=== PATIENT | female | born 1990 | race Caucasian/White ===

== ENCOUNTER 2016-09-03 18:25 | Emergency (ER) | payer MEDICAID ==
[~2016-09-03] VITALS: Ht 154.9 cm; Wt 99.3 kg
[2016-09-03 18:34] VITALS: BP_SYST 120
[2016-09-03] MEDS ORDERED: ONDANSETRON 4 MG ODT TAB PO ONE (19:00)
[2016-09-03] MEDS ORDERED: DIPHENOXYLATE HCL/ATROP SULF 2.5 MG TAB PO ONE (19:00)
[2016-09-03 19:32] VITALS: BP_SYST 124
== END 2016-09-03 19:32 | disposition home or self-care (01) ==
LOC: SED 18:25
DX: K52.9 Noninfective gastroenteritis and colitis, unspecified (principal)
CPT/HCPCS: 99283; Q0162

== ENCOUNTER 2019-06-04 22:54 | Emergency (ER) | payer MEDICAID ==
[~2019-06-04] VITALS: Ht 154.9 cm; Wt 90.7 kg
[2019-06-04 23:00] VITALS: BP_SYST 107
--- NOTE | 2019-06-04 23:00 | NUR ---
Patient triaged and placed in waiting room. VSS and patient appears in no acute distress at this time. Accompanied by FAM MEMBER, awaiting available bed, and MD notified of need for MSE.
--- NOTE | 2019-06-04 23:30 | NUR ---
called pt name in the WR.No answer.
--- NOTE | 2019-06-04 23:35 | NUR ---
called pt name in the WR.No answer.
--- NOTE | 2019-06-04 23:40 | NUR ---
called pt name in the WR.No answer.
== END 2019-06-04 23:40 | disposition left against medical advice (07) ==
LOC: SED 22:54
DX: R07.89 Other chest pain (principal); R42 Dizziness and giddiness; Z53.21 Procedure and treatment not carried out due to patient leaving prior to being seen by health care provider

== ENCOUNTER 2020-11-11 14:36 | Emergency (ER) | payer MEDICAID ==
[~2020-11-11] VITALS: Ht 154.9 cm; Wt 108.9 kg
[2020-11-11 14:46] VITALS: BP_SYST 123
[2020-11-11 15:09] LABS: BASOPHILS % (AUTO) 0.3 % (0.0-2.0); EOSINOPHILS # (AUTO) 0.2 K/uL (0.0-0.4); EOSINOPHILS % (AUTO) 1.7 % (0.0-4.0); HEMATOCRIT 37.9 % (36-48); HEMOGLOBIN 12.3 g/dL (12.0-16.0); LYMPHOCYTES # (AUTO) 3.5 K/uL (1.0-5.5); LYMPHOCYTES % (AUTO) 30.1 % (20.5-51.5); MEAN CORPUSCULAR HEMOGLOBIN 27 pg (27-31); MEAN CORPUSCULAR HGB CONC 33 % (32-36); MEAN CORPUSCULAR VOLUME 82 fL (79.0-98.0); MONOCYTES # (AUTO) 0.7 K/uL (0.0-1.0); MONOCYTES % (AUTO) 5.9 % (1.7-9.3); NEUTROPHILS # (AUTO) 7.2 K/uL (1.8-7.7); PLATELET COUNT (AUTO) 353 K/uL (130-430); RED BLOOD CELL COUNT(AUTO) 4.62 MIL/uL (4.2-6.2); RED CELL DISTRIBUTION WIDTH 14.4 % (9.0-15.0); WHITE BLOOD COUNT (AUTO) 11.7 K/uL (4.8-10.8)
[2020-11-11 15:19] LABS: BILIRUBIN,URINE NEGATIVE (NEGATIVE); BLOOD, URINE NEGATIVE (NEGATIVE); COLOR,URINE YELLOW (YELLOW); GLUCOSE,URINE NEGATIVE (NEGATIVE); KETONES,URINE NEGATIVE (NEGATIVE); LEUKOCYTE ESTERASE ,URINE NEGATIVE (NEGATIVE); NITRITE, URINE NEGATIVE (NEGATIVE); PROTEIN URINE NEGATIVE (NEGATIVE); UROBILINOGEN,URINE 0.2 (0.2-1.0)
[2020-11-11 15:23] LABS: C-REACTIVE PROTEIN QUANT 1.5 mg/dL (0-0.5); CALCIUM 8.6 mg/dL (8.4-11.0); CREATININE 0.64 mg/dL (0.55-1.30); POTASSIUM 3.6 mmol/L (3.5-5.1)
[2020-11-11 15:27] LABS: INR 0.9 (0.8-1.2); PROTHROMBIN TIME 9.8 SECS (9.5-12.5)
[2020-11-11 15:28] LABS: ALBUMIN 3.6 g/dL (3.4-4.8); TOTAL BILIRUBIN 0.4 mg/dL (0.0-1.0)
[2020-11-11 15:31] LABS: CLARITY/URINE SLIGHTLY HAZY (CLEAR)
[2020-11-11] MEDS ORDERED: OMEP20CA15 PO (16:34)
[2020-11-11 16:48] VITALS: BP_SYST 103
== END 2020-11-11 16:51 | disposition home or self-care (01) ==
LOC: SED 14:36
DX: K29.70 Gastritis, unspecified, without bleeding (principal); Z79.899 Other long term (current) drug therapy
CPT/HCPCS: 36415; 76376; 76705; 80053; 81003; 81025; 82150; 83605; 83615; 83690; 84703; 85025; 85610-TC; 85730-TC; 86140; 99285

== ENCOUNTER 2023-03-02 19:18 | Emergency (ER) | payer MEDICAID ==
[~2023-03-02] VITALS: Ht 154.9 cm; Wt 117.9 kg
[~2023-03-02 19:18] MED LIST: OMEP20CA15 PO
[2023-03-02 19:35] VITALS: BP_SYST 124; PULSE 82; RESP 18; TEMP 98.2; O2SAT 97
[2023-03-02] MEDS ORDERED: KETOROLAC TROMETHAMINE 60 MG/2 ML VIAL IM ONE (20:00)
[2023-03-02] MEDS ORDERED: guaiFENesin/DEXTROMETHORPHAN 10 ML UDC PO ONE (20:00)
[2023-03-02] MEDS ORDERED: OSELTAMIVIR PHOSPHATE 75 MG CAPSULE PO ONE (21:00)
[2023-03-02] MEDS ORDERED: GUAI5SYR PO (21:30)
[2023-03-02] MEDS ORDERED: OSEL75CA PO (21:30)
[2023-03-02] MEDS ORDERED: IBUP-1971 PO (21:30)
[2023-03-02 22:01] VITALS: BP_SYST 122; PULSE 79; RESP 16; TEMP 98; O2SAT 97
== END 2023-03-02 21:35 | disposition home or self-care (01) ==
LOC: SED 19:18
DX: J10.1 Influenza due to other identified influenza virus with other respiratory manifestations (principal); R50.9 Fever, unspecified; R05.9 Cough, unspecified; M79.10 Myalgia, unspecified site; Z79.899 Other long term (current) drug therapy
CPT/HCPCS: 93005; 99283; 96372; G9035; J1885